=== PATIENT | female | born 1980 | race Caucasian/White ===

== ENCOUNTER 2018-05-15 06:14 | Day surgery (SDC) | payer OTHER ==
[2018-05-13 10:37] VITALS: BMI 34.5
[2018-05-15] MEDS ORDERED: ceFAZolin 1 gm in NS 2 GM/200 ML BAG IVPB ONE (07:21)
[2018-05-15] MEDS ORDERED: Midazolam 2 MG/2 ML VIAL ONE (07:42)
[2018-05-15] MEDS ORDERED: Propofol 10 mg/ml Inj (20 ML) ONE (07:43)
[2018-05-15] MEDS ORDERED: Rocuronium 10 mg/ml (5 ml) ONE ×2 (07:48→11:30)
[2018-05-15] MEDS ORDERED: Succinylcholine Chloride 20 mg/ml Syr (5 ml) IV ONE (07:48)
[2018-05-15] MEDS ORDERED: Neostigmine 1:1000 (1 mg/ml) Inj ONE (11:24)
[2018-05-15] MEDS ORDERED: Oxycodone/Acetaminophen 5/325 mg Tab PO PRN ×2 (12:29)
[2018-05-15] MEDS: HYDROmorphone 0.5 mg/0.5 ml ISec IVP PRN ×3 (12:34→13:00)
[2018-05-15] MEDS ORDERED: HYDROmorphone 0.5 mg/0.5 ml ISec ONE (12:34)
[2018-05-15] MEDS ORDERED: Lactated Ringer's 1,000 ML IV SCH (12:45)
[2018-05-15] MEDS ORDERED: Ropivacaine 0.5% PF (20 ml) inj INJ ONE (13:03)
--- NOTE | 2018-05-15 13:30 | PCM.ANESB1 ---
Interscalene Block - Brachial Plexus Date of Procedure: 05/15/18 Anesthesiologist: Jeet Pre-Procedure Diagnosis: Superior glenoid labrum lesion Post-Procedure Diagnosis: Superior glenoid labrum lesion Procedure Performed: Interscalene Block of Brachial Plexus Right - Procedure Interscalene Block of Brachial Plexus: This procedure was explained to the patient that it is for post-operative pain management. Consent was obtained after a thorough discussion with the patient regarding the benefits and possible complications of local anesthetic block of the Brachial Plexus at the Interscalene area. The patient was brought to the Operating Room and standard monitors were applied. Time out was held with the circulating nurse to confirm the correct surgery and appropriate block. After applying Oxygen by nasal cannula and administering IV Sedation, the patient's head was gently rotated away from the operative shoulder and the anterior scalene groove was carefully palpated. The ultrasound transducer was then applied to the skin in the transverse plane and the brachial plexus was visualized lateral to the carotid artery and in between the anterior and middle scalene muscles. After identification,the anterior lateral portion of the neck was prepped with Betadine solution three times and Lidocaine 1% was injected subcutaneously for topical analgesia. At this point, a # 22 gauge Stimuplex 2 inches insulated needle was inserted into the interscalene groove and directed in a caudal and midline direction. The needle was inserted lateral to the ultrasound transducer in-plane towards the brachial plexus in a [id number] direction. Needle advancement was performed carefully under direct ultrasound visualization. Nerve stimulator was used and twitched of the affected extremity including the hand brachialis muscles, biceps and the deltoid was obtained at a current of _0.7_MA. After repeated negative aspiration,_20_cc of_0.5%__,___ropivicaine____were injected. Under ultrasound guidance the local anesthetics were observed surrounding the roots of the brachial plexus. The needle was removed intact and sterile dressing was applied. The patient had stable vital signs, was conscious and in no apparent distress. The patient tolerated the interscalene block of the bracheal plexus well with stable vital signs.
[2018-05-15 14:59] VITALS: RESP 18
[2018-05-15 15:03] VITALS: BP 130/74; PULSE 88; TEMP 97; O2SAT 100
--- NOTE | 2018-05-17 02:07 | PCM.SURG1 ---
Surgeon's Initial Post Op Note - Surgeon's Notes Surgeon: Kyung Tomlinson MD Pre Certification Specialist: Jarrett Wallace PA-C Type of Anesthesia: General Endo, Block Regional Pre-Operative Diagnosis: Right Shoulder: #1 Anterior Instability/ Bankart Injury/ IGHL tear. #2 SLAP tear. #3 biceps tenosynovitis w/ instability. #4 subacromial impingement. #5 subacromial bursitis. #6 partial RTC tear (SS & subscap) Operative Findings: Right Shoulder: #1 Anterior Instability/ Bankart Injury/ IGHL tear. #2 SLAP tear type 2. #3 biceps tenosynovitis w/ instability. #4 subacromial impingement. #5 subacromial bursitis (severe). #6 partial RTC tear (SS & subscap), less than 25% thickness articular tears. 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 #8 significant synovitis (anterior, inferior, posterior GH joint) Post-Operative Diagnosis: Right Shoulder: #1 Anterior Instability/ Bankart Injury/ IGHL tear. #2 SLAP tear type 2. #3 biceps tenosynovitis w/ instability. #4 subacromial impingement. #5 subacromial bursitis (severe). #6 partial RTC tear (SS & subscap), less than 25% thickness articular tears. 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 #8 significant synovitis (anterior, inferior, posterior GH joint) Operation Performed: Right Shoulder: #1 Open subpect LH biceps tenodesis. #2 Arthroscopic anterior stabilization/ capsulorrhaphy/ Bankart & IGHL repair. #3 Arthroscopic SLAP repair. #4 Arthroscopic chondroplasty and microfracture glenoid (central full thickness grade 4 cartilage injury, [id number]). #5 Arthroscopic extensive debridement (including biceps tenotomy, synovectomy (anterior/posterior/inferior GH joint), debridement partial RTC tears (SS & subscap), debridement posterior labrum, chondroplasty glenoid). #6 Arthroscopic subacromial decompression w/ acromioplasty. #7 Arthroscopic intra-articular and subacromial PRP injection Specimen/Specimens Removed: specimen= none. complications= none. Implants=. Arthrex: #1 - 2.9 mm biocomposite Push Lock anchors x4. #2 - 3.5 mm biocomposite Push Lock anchor x1 (Bankart). (3 anchors used for anterior stabilization/ Bankart repair, 2 anchors used for SLAP repair with associated Labral tape sutures for all anchors). #3 - 8mm Biocomposite Biceps tenodesis screw x1 Estimated Blood Loss: EBL {In ML}: 10 Blood Products Given: N/A Drains Used: No Drains Post-Op Condition: Good Date of Surgery/Procedure: 05/15/18 Time of Surgery/Procedure: 09:00
--- NOTE | 2018-05-17 21:00 | OP ---
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 deformity or Abbe arm. The excess biceps tendon tissue was resected from the proximal biceps once the optimal level of tension and biceps tenodesis location for the biceps tendon was identified on the tendon itself. The proximal humeral site was prepared with debridement of the overlying soft tissue and periosteum and placement of a guidewire through the near cortex and embedded into the far cortex. This was done at a position inferior to the pectoralis tendon. The biceps tendon was very small and we proceeded with [id number] biceps tenodesis screw fixation and the near cortex was reamed at 8 mm. The docking site was established and copiously irrigated removing bony debris. The proximal biceps tendon was repaired with placement of whipstitch for the proximal 2 cm of the tendon. One end of the suture for the whipstitch was placed through the biceps tenodesis screw, and the biceps tenodesis screw with the proximal biceps tendon was docked into the proximal humeral shaft docking site inferior to the pectoralis tendon with good fixation achieved, and successful biceps tenodesis carried out with good stability and fixation achieved. The wound was then copiously irrigated. The wound was then reapproximated with #1 Vicryl suture for deep tissue and fascia, 2-0 Vicryl suture for subcutaneous tissue followed by 3-0 Monocryl suture for skin. Sterile dressings were applied, and the right shoulder/arm was then fitted and placed in a shoulder immobilizer sling provided by my office. The patient was then brought back into the supine position and transferred to a stretcher, where she was extubated successfully without any complications and transferred to the PACU in stable condition. JUSTIFICATION FOR BILLING AND CODIN. Arthroscopic anterior stabilization/capsulorrhaphy/Bankart repair/inferior glenohumeral ligament repair was carried out successfully and therefore it was coded and billed, CPT code 25314. 2. Arthroscopic SLAP repair was carried out successfully for the type 2 SLAP tear as well and therefore it was coded and billed as CPT code 10828. 3. Open biceps tenodesis was carried out successfully in the subpectoral position and therefore it was coded and billed as CPT code 90690. 4. Arthroscopic extensive debridement was carried out successfully including biceps tenotomy, debridement of the posterior labrum, debridement of the rotator cuff tendon partial tear, extensive synovectomy of the anterior and inferior and posterior aspects of the glenohumeral joint while maintaining good hemostasis, chondroplasty and microfracture of the glenoid chondral injury. There was a significant amount of surgical time dedicated to this extensive debridement and all the portions of the extensive debridement that were indicated and carried out, which was beyond what was considered usual and customary for better visualization as an adjunct to shoulder arthroscopic surgery and therefore the extensive debridement is rightfully coded and billed as CPT code 69984. 5. Arthroscopic subacromial decompression with acromioplasty was carried out successfully and therefore it was coded and billed as CPT code 22688. 6. Arthroscopic microfracture of the glenoid zone of acute chondral injury was carried out successfully and either it must be coded and billed as unlisted procedure or accepted as part of CPT code 49625/extensive debridement as described above and accepted as a CPT code to be billed. 7. Arthroscopic intraarticular and subacromial space PRP injection was carried out successfully and therefore it was coded and billed as CPT code 0232T. 8. At the end of the procedure, the right shoulder and arm was fitted and placed into a shoulder immobilizer sling provided by my office, provided with the same date of service as the surgery. The shoulder immobilizer sling was placed out of absolute medical necessity to maximize the chances of successful healing after surgery and to protect the anterior stabilization/Bankart repair/inferior glenohumeral ligament repair/capsulorrhaphy and the SLAP repair was well as the biceps tenodesis. The shoulder immobilizer sling was placed out of medical necessity at the end of the procedure and was provided by my office for the same date of service and therefore it was coded and billed as DME code [id number]. DISPOSITION: The patient will be discharged home once she has recovered from anesthesia after the regional block is placed. She is instructed to keep the dressings clean, dry and intact at all times. She is instructed to be strict nonweightbearing to the right upper extremity. She is instructed to keep the shoulder immobilizer sling on at all times. She has been given a prescription for Percocet for pain control. She will contact me directly with any questions or concerns. She will follow up in my office at [facility] within one week and already has a postoperative appointment set up. I personally examined the patient postoperatively in PACU and the right upper extremity was neurovascularly intact with 5/5 motor strength, intact sensory ulnar nerve/radial nerve/median nerve/axillary nerve/musculocutaneous nerve and 2+ radial artery and ulnar artery pulses with brisk capillary refill in all fingers. Kyung Tomlinson MD
== END 2018-05-15 16:32 | disposition home or self-care (01) ==
LOC: C.SDS 06:14
PROVIDERS: ATTEND Student in an Organized Health Care Education/Training Program
DX: S43.431A Superior glenoid labrum lesion of right shoulder, initial encounter (principal); S43.011A Anterior subluxation of right humerus, initial encounter; M75.51 Bursitis of right shoulder; M75.41 Impingement syndrome of right shoulder; S46.811A Strain of other muscles, fascia and tendons at shoulder and upper arm level, right arm, initial encounter; M75.21 Bicipital tendinitis, right shoulder
CPT/HCPCS: 29806; 29807; 29821; 29822; C1713; J0171; J0690; J1170; J2001; J2250; J2405; J2704; J2710; J3010